=== PATIENT | female | born 1955 | race Caucasian/White ===

== ENCOUNTER → 2016-09-15 | Outpatient (CLI) | payer OTHER | LOC: FIMAGING 15:46 | PROVIDERS: ATTEND Obstetrics & Gynecology | DX: Z12.31 Encounter for screening mammogram for malignant neoplasm of breast (principal) | CPT/HCPCS: G0202 ==

== ENCOUNTER → 2016-10-19 | Outpatient (CLI) | payer OTHER | LOC: FIMAGING 15:52 | PROVIDERS: ATTEND Obstetrics & Gynecology | DX: D25.9 Leiomyoma of uterus, unspecified (principal) ==

== ENCOUNTER → 2017-09-29 | Outpatient (CLI) | payer OTHER | LOC: FIMAGING 15:46 | PROVIDERS: ATTEND Family Medicine | DX: Z12.31 Encounter for screening mammogram for malignant neoplasm of breast (principal) ==

== ENCOUNTER 2017-12-12 20:25 | Emergency (ER) | payer OTHER ==
--- NOTE | 2017-12-12 22:05 | EDPHY ---
H & P Time Seen by Provider: 12/12/17 20:58 HPI/ROS: HPI Lightheaded. 62-year-old female by private vehicle with her . This patient reports that she was in a hot tub for an extended period of time the morning of December 10. She reports after getting out of this hot tub she felt some lightheadedness and after standing from sitting had a syncopal episode. She was seen at an urgent care. She had some minor wound care there was evaluated and discharged. She presents to our emergency department tonight with complaint of some lightheadedness this evening which she describes this coming on as waves and she also reports having a small amount of tingling in her left hand. She has not been in the hot tub since December 10. No chest pain. She denies any associated headache. No shortness of breath. No loss of sensation or weakness in her extremities. She does report that for many years she has had these intermittent palpitations which she describes as a very short flutter or skipping a beat. Currently she has no other complaint. ROS: Constitutional: No fever, no chills. As above. Eyes: No discharge. No changes in vision. ENT: No sore throat. No nasal congestion or rhinorrhea. Respiratory: No cough. No shortness of breath. Cardiac: No chest pain, as above. Gastrointestinal: No abdominal pain, no vomiting, no diarrhea. Genitourinary: No hematuria. No dysuria or increased frequency with urination. Musculoskeletal: No back pain. No neck pain. No myalgias or arthralgias. Skin: No rashes. Neurological: No headache. No focal weakness or altered sensation. Past medical history: Tonsillectomy. Social history: Nonsmoker. Here with her . Drinks alcohol socially. Physical Exam: General Appearance: Alert, no distress. This patient is responding to questions appropriately and in full sentences. This patient appears well- hydrated and well-nourished. Eyes: Pupils equal and round and reactive to light at 3-2 mm bilaterally, no pallor or injection. No lid edema, erythema or injection. No nystagmus. No photophobia. ENT, Mouth: Mucous membranes are moist. The pharyngeal tissues are unremarkable. No edema or swelling. No asymmetry suggestive of abscess. No erythema or exudates. No tongue lacerations or abrasions. Dentition is intact. Respiratory: There are no retractions, lungs are clear to auscultation with good air movement bilaterally. Cardiovascular: Regular rate and rhythm. No murmur appreciated. Gastrointestinal: Abdomen is soft and nontender, no masses, bowel sounds normal. No focal tenderness at McBurney's point. No Villagomez sign. Neurological: Motor sensory function is grossly intact. Cranial nerves are normal. Cerebellar function normal. Gait is normal. Skin: Warm and dry, no rashes. Musculoskeletal: Neck is supple and nontender. No pain on flexion of her neck. No midline cervical, thoracic, lumbar tenderness on palpation. Extremities are symmetrical. All joints range without pain or impingement. Psychiatric: No agitation. No depression. Database: EKG: EKG time is 9:13 p.m.; EKG shows a narrow complex normal sinus rhythm with a ventricular rate of 67. Possible right ventricular hypertrophy. The [place], QRS, QT intervals are within normal limits. There are no ST-T wave changes indicative of ischemic or injury pattern. No evidence of right heart strain. No evidence of WPW, Brugada syndrome, hypertrophic cardiomyopathy. Interpreted by me. Imaging: CT brain without contrast: Negative. Results were discussed with staff radiologist. Procedures: Emergency department course: Triage vital signs reviewed. She is moderately hypertensive. Vital signs otherwise normal. The patient was placed on a manager monitoring. EKG obtained and reviewed by myself. Patient sent for CT head without contrast. Patient and endorse ED workup. 10:00 p.m., patient re-evaluated, resting comfortably at this time. Vital signs reviewed and are normal. Blood pressure 126/85. Results of EKG and CT discussed with her and her . Repeat neurologic Assessment is nonfocal. Her presentation is consistent with a vasovagal type syncope. I feel a arrhythmia is unlikely. CVA unlikely. Traumatic brain injury unlikely. She feels comfortable going home at this time. I will have her follow up with her primary care physician as well as [facility] for re-evaluation. I discussed obtaining a Holter monitor through [facility]. Return to emergency department precautions were thoroughly reviewed with her and her . All of their questions were answered. The patient was discharged in good condition. Differential Diagnosis: The differential diagnosis on this patient includes but is not limited to vasovagal syncope, noncardiac syncope. Arrhythmia, CVA, subarachnoid hemorrhage , pulmonary embolism, anemia unlikely. This represents a partial list of diagnoses considered. These considerations are based on history, physical exam , past history, reassessment and diagnostic testing. Smoking Status: Never smoked Constitutional: Initial Vital Signs Temperature (C) 36.7 C 12/12/17 20:27 Heart Rate 71 12/12/17 20:27 Respiratory Rate 18 12/12/17 20:27 Blood Pressure 147/87 H 12/12/17 20:27 O2 Sat (%) 97 12/12/17 20:27 O2 Delivery Mode Room Air Allergies/Adverse Reactions: No Known Allergies Allergy (Unverified 12/12/17 20:27) Home Medications: Medication Instructions Recorded Estridial 12/12/17 Progesterone 12/12/17 Departure - Departure Disposition: Home, Routine, Self-Care Clinical Impression: Lightheaded, Palpitations Condition: Good Instructions: Heart Palpitations (ED), Lightheadedness (ED) Additional Instructions: Read and follow provided instructions. Follow-up with your primary care physician and or [facility] our cardiology group within 1-2 days for re-evaluation as discussed. Cardiology will likely place you on an extended manager monitoring to evaluate you for any arrhythmia of your heart. Keep yourself well hydrated. Avoid hot tubs. Return to the emergency department for fainting, lightheadedness, worsening headache, chest pain, worsening palpitations or other serious concerns. Referrals: Kelle Morales MD [Primary Care Provider] - As per Instructions [facility] [Provider Group] - As per Instructions
[2017-12-12 22:55] VITALS: BP 126/75
--- NOTE | 2017-12-12 23:16 | CPEKG ---
Test Reason : OPEN Blood Pressure : / mmHG Vent. Rate : 067 BPM Atrial Rate : 067 BPM P-R Int : 178 ms QRS Dur : 104 ms QT Int : 442 ms P-R-T Axes : 084 085 073 degrees QTc Int : 467 ms Sinus rhythm Consider right ventricular hypertrophy Nonspecific T abnrm, anterolateral leads Confirmed by Ana Garland ([id number]) on 12/12/2017 11:15:51 PM Referred By: Confirmed By:Ana Garland
== END 2017-12-12 22:55 | disposition home or self-care (01) ==
DX: R42 Dizziness and giddiness (principal); R00.2 Palpitations; I10 Essential (primary) hypertension

== ENCOUNTER → 2017-12-21 | Outpatient (CLI) | payer OTHER | LOC: FIMAGING 09:04 | PROVIDERS: ATTEND Family Medicine | DX: Z13.820 Encounter for screening for osteoporosis (principal); M85.80 Other specified disorders of bone density and structure, unspecified site; Z79.890 Hormone replacement therapy ==